=== PATIENT | female | born 1945 | race Caucasian/White ===

== ENCOUNTER 2020-01-15 13:33 | Inpatient (IN) ==
[2020-01-16] MEDS ORDERED: Furosemide 40 MG TABLET PO PRN (10:58)
[2020-01-16] MEDS ORDERED: *HR* HYDROcodone/Acet 5/325 mg TABLET PO PRN (10:58)
[2020-01-16] MEDS: Ketotifen Fumarate [Zaditor] 1 DROP OP SCH ×3 (14:12→21:07)
[2020-01-16] MEDS: Glucosamine/D3/Boswellia Serra [Osteo Bi-Flex Tablet] PO SCH (21:07)
[2020-01-17] MEDS: polyethylene glycoL 3350 17 GM POWD.PACK PO SCH (07:40)
[2020-01-17] MEDS: Multivit/Ca/Min/Fe/FA 1 TAB TABLET PO SCH (07:43)
[2020-01-17] MEDS: Glucosamine/D3/Boswellia Serra [Osteo Bi-Flex Tablet] PO SCH ×2 (07:44→20:47)
[2020-01-17] MEDS: Ketotifen Fumarate [Zaditor] 1 DROP OP SCH ×4 (07:44→20:47)
[2020-01-17] MEDS ORDERED: NON-FORMULARY MEDICATION 1 EACH EACH (Potassium Chloride [K-Tab Er] 20 MEQ) PO SCH (09:00)
[2020-01-17 09:39] LABS: INR 1.1; Prothrombin Time 12.9 Seconds (9.4-12.1)
[2020-01-17 09:49] LABS: BUN/Creatinine Ratio 15 (6-26); Blood Urea Nitrogen 15 mg/dL (8-23); Carbon Dioxide 27 mEq/L (23-29); Chloride 97 mEq/L (98-107); Glucose 88 mg/dL (70-105); Osmolality,Calculated 278 (280-300); Potassium 3.6 mEq/L (3.5-5.1); Sodium 134 mEq/L (136-145); eGFR For African Americans > 60 (> 60); eGFR For Non-African Americans 53 (> 60)
[2020-01-18] MEDS: Multivit/Ca/Min/Fe/FA 1 TAB TABLET PO SCH (08:00)
[2020-01-18] MEDS: Glucosamine/D3/Boswellia Serra [Osteo Bi-Flex Tablet] PO SCH ×2 (08:00→21:03)
[2020-01-18] MEDS: Ketotifen Fumarate [Zaditor] 1 DROP OP SCH ×4 (08:01→21:03)
[2020-01-18] MEDS: polyethylene glycoL 3350 17 GM POWD.PACK PO SCH (08:01)
[2020-01-19] MEDS: Multivit/Ca/Min/Fe/FA 1 TAB TABLET PO SCH (08:34)
[2020-01-19] MEDS: polyethylene glycoL 3350 17 GM POWD.PACK PO SCH (08:34)
[2020-01-19] MEDS: Glucosamine/D3/Boswellia Serra [Osteo Bi-Flex Tablet] PO SCH ×2 (08:35→20:54)
[2020-01-19] MEDS: Ketotifen Fumarate [Zaditor] 1 DROP OP SCH ×4 (08:35→20:54)
[2020-01-19] MEDS ORDERED: Bisacodyl 10 MG RECTAL SUPPOSITORY RC PRN (14:51)
[2020-01-19] MEDS ORDERED: Lactulose Oral Soln 20 GM/30 ML UDC PO PRN (14:51)
[2020-01-20] MEDS: polyethylene glycoL 3350 17 GM POWD.PACK PO SCH (09:21)
[2020-01-20] MEDS: Multivit/Ca/Min/Fe/FA 1 TAB TABLET PO SCH (09:22)
[2020-01-20] MEDS: Glucosamine/D3/Boswellia Serra [Osteo Bi-Flex Tablet] PO SCH ×2 (09:22→19:46)
[2020-01-20] MEDS: Ketotifen Fumarate [Zaditor] 1 DROP OP SCH ×4 (09:22→19:45)
[2020-01-21] MEDS: polyethylene glycoL 3350 17 GM POWD.PACK PO SCH (08:47)
[2020-01-21] MEDS: Glucosamine/D3/Boswellia Serra [Osteo Bi-Flex Tablet] PO SCH ×2 (08:47→19:50)
[2020-01-21] MEDS: Multivit/Ca/Min/Fe/FA 1 TAB TABLET PO SCH (08:47)
[2020-01-21] MEDS: Ketotifen Fumarate [Zaditor] 1 DROP OP SCH ×4 (08:47→19:51)
[2020-01-22] MEDS: polyethylene glycoL 3350 17 GM POWD.PACK PO SCH (08:27)
[2020-01-22] MEDS: Multivit/Ca/Min/Fe/FA 1 TAB TABLET PO SCH (08:27)
[2020-01-22] MEDS: Glucosamine/D3/Boswellia Serra [Osteo Bi-Flex Tablet] PO SCH ×2 (08:28→20:22)
[2020-01-22] MEDS: Ketotifen Fumarate [Zaditor] 1 DROP OP SCH ×4 (08:28→20:22)
[2020-01-23] MEDS: Multivit/Ca/Min/Fe/FA 1 TAB TABLET PO SCH (10:23)
[2020-01-23] MEDS: polyethylene glycoL 3350 17 GM POWD.PACK PO SCH (10:24)
[2020-01-23] MEDS: Glucosamine/D3/Boswellia Serra [Osteo Bi-Flex Tablet] PO SCH ×2 (10:30→22:05)
[2020-01-23] MEDS: Ketotifen Fumarate [Zaditor] 1 DROP OP SCH ×4 (10:30→20:40)
[2020-01-24] MEDS: polyethylene glycoL 3350 17 GM POWD.PACK PO SCH (07:59)
[2020-01-24] MEDS: Ketotifen Fumarate [Zaditor] 1 DROP OP SCH ×4 (08:00→20:22)
[2020-01-24] MEDS: Glucosamine/D3/Boswellia Serra [Osteo Bi-Flex Tablet] PO SCH ×2 (08:00→20:22)
[2020-01-24] MEDS: Multivit/Ca/Min/Fe/FA 1 TAB TABLET PO SCH (08:14)
[2020-01-24] MEDS: Nystatin POWDER 30 GM BOTTLE TP SCH ×2 (17:41→20:22)
[2020-01-25 06:39] LABS: Basophils % 0.7 %; Eosinophils # 0.3 K/mcL (0.0-0.6); Eosinophils % 4.1 %; Hematocrit 35.7 % (35.3-44.9); Hemoglobin 11.8 g/dL (11.5-15.4); Immature Granulocytes % 0.2 % (0-4); Lymphocytes % 32.7 %; Mean Corpuscular HGB Conc 33.1 g/dL (31.6-35.5); Mean Corpuscular Hemoglobin 30.3 pg (28.0-33.3); Mean Corpuscular Volume 91.5 fL (83.0-100.0); Mean Platelet Volume 10.9 fL (9.4-12.4); Monocytes # 0.6 K/mcL (0.0-1.3); Monocytes % 9.8 %; Neutrophils # 3.2 K/mcL (1.6-8.9); Platelet Count 109 K/mcL (140-400); Segmented Neutrophils % 52.5 %; White Blood Count 6.1 K/mcL (4.3-11.1)
[2020-01-25 06:56] LABS: Calcium 10.5 mg/dL (8.6-10.3)
[2020-01-25] MEDS: Multivit/Ca/Min/Fe/FA 1 TAB TABLET PO SCH (08:16)
[2020-01-25] MEDS: polyethylene glycoL 3350 17 GM POWD.PACK PO SCH (08:17)
[2020-01-25] MEDS: Nystatin POWDER 30 GM BOTTLE TP SCH ×3 (08:19→21:47)
[2020-01-25] MEDS: Glucosamine/D3/Boswellia Serra [Osteo Bi-Flex Tablet] PO SCH ×2 (11:42→21:22)
[2020-01-25] MEDS: Ketotifen Fumarate [Zaditor] 1 DROP OP SCH ×4 (11:42→21:22)
[2020-01-26] MEDS: Multivit/Ca/Min/Fe/FA 1 TAB TABLET PO SCH (09:42)
[2020-01-26] MEDS: Glucosamine/D3/Boswellia Serra [Osteo Bi-Flex Tablet] PO SCH ×2 (09:43→20:04)
[2020-01-26] MEDS: polyethylene glycoL 3350 17 GM POWD.PACK PO SCH (09:43)
[2020-01-26] MEDS: Ketotifen Fumarate [Zaditor] 1 DROP OP SCH ×4 (09:43→20:04)
[2020-01-26] MEDS: Nystatin POWDER 30 GM BOTTLE TP SCH ×3 (09:43→20:04)
[2020-01-27] MEDS: Multivit/Ca/Min/Fe/FA 1 TAB TABLET PO SCH (10:20)
[2020-01-27] MEDS: polyethylene glycoL 3350 17 GM POWD.PACK PO SCH (10:20)
[2020-01-27] MEDS: Ketotifen Fumarate [Zaditor] 1 DROP OP SCH ×4 (10:21→20:20)
[2020-01-27] MEDS: Glucosamine/D3/Boswellia Serra [Osteo Bi-Flex Tablet] PO SCH ×2 (10:21→20:20)
[2020-01-27] MEDS: Nystatin POWDER 30 GM BOTTLE TP SCH ×3 (10:24→21:58)
[2020-01-28] MEDS: Glucosamine/D3/Boswellia Serra [Osteo Bi-Flex Tablet] PO SCH ×2 (09:21→20:31)
[2020-01-28] MEDS: Ketotifen Fumarate [Zaditor] 1 DROP OP SCH ×4 (09:22→20:33)
[2020-01-28] MEDS: polyethylene glycoL 3350 17 GM POWD.PACK PO SCH (09:25)
[2020-01-28] MEDS: Nystatin POWDER 30 GM BOTTLE TP SCH ×3 (09:26→20:33)
[2020-01-28] MEDS: Multivit/Ca/Min/Fe/FA 1 TAB TABLET PO SCH (09:26)
[2020-01-29 07:29] LABS: Basophils % 0.6 %; Eosinophils # 0.3 K/mcL (0.0-0.6); Eosinophils % 5.6 %; Hematocrit 34.1 % (35.3-44.9); Hemoglobin 11.3 g/dL (11.5-15.4); Lymphocytes # 1.9 K/mcL (0.6-4.6); Lymphocytes % 40.5 %; Mean Corpuscular HGB Conc 33.1 g/dL (31.6-35.5); Mean Corpuscular Hemoglobin 30.3 pg (28.0-33.3); Mean Corpuscular Volume 91.4 fL (83.0-100.0); Mean Platelet Volume 10.4 fL (9.4-12.4); Monocytes # 0.5 K/mcL (0.0-1.3); Monocytes % 9.9 %; Red Blood Count 3.73 M/mcL (3.82-4.97); Segmented Neutrophils % 43.4 %; White Blood Count 4.6 K/mcL (4.3-11.1)
[2020-01-29 07:44] LABS: Platelet Count 99 K/mcL (140-400)
[2020-01-29] MEDS: Glucosamine/D3/Boswellia Serra [Osteo Bi-Flex Tablet] PO SCH ×2 (10:20→20:12)
[2020-01-29] MEDS: polyethylene glycoL 3350 17 GM POWD.PACK PO SCH (10:20)
[2020-01-29] MEDS: Ketotifen Fumarate [Zaditor] 1 DROP OP SCH ×4 (10:20→20:11)
[2020-01-29] MEDS: Nystatin POWDER 30 GM BOTTLE TP SCH ×3 (10:23→20:11)
[2020-01-29] MEDS: Multivit/Ca/Min/Fe/FA 1 TAB TABLET PO SCH (10:23)
[2020-01-29 12:55] LABS: Potassium 3.9 mEq/L (3.5-5.1)
[2020-01-30] MEDS: polyethylene glycoL 3350 17 GM POWD.PACK PO SCH (08:23)
[2020-01-30] MEDS: Multivit/Ca/Min/Fe/FA 1 TAB TABLET PO SCH (08:24)
[2020-01-30] MEDS: Nystatin POWDER 30 GM BOTTLE TP SCH ×3 (08:25→19:46)
[2020-01-30] MEDS: Glucosamine/D3/Boswellia Serra [Osteo Bi-Flex Tablet] PO SCH ×2 (08:54→19:46)
[2020-01-30] MEDS: Ketotifen Fumarate [Zaditor] 1 DROP OP SCH ×4 (08:55→19:46)
[2020-01-31] MEDS: Ketotifen Fumarate [Zaditor] 1 DROP OP SCH ×4 (09:24→20:08)
[2020-01-31] MEDS: Glucosamine/D3/Boswellia Serra [Osteo Bi-Flex Tablet] PO SCH ×2 (09:24→20:08)
[2020-01-31] MEDS: Multivit/Ca/Min/Fe/FA 1 TAB TABLET PO SCH (09:45)
[2020-01-31] MEDS: polyethylene glycoL 3350 17 GM POWD.PACK PO SCH (09:46)
[2020-01-31] MEDS: Nystatin POWDER 30 GM BOTTLE TP SCH ×3 (09:46→20:07)
[2020-02-01] MEDS: Glucosamine/D3/Boswellia Serra [Osteo Bi-Flex Tablet] PO SCH ×2 (09:01→19:57)
[2020-02-01] MEDS: Ketotifen Fumarate [Zaditor] 1 DROP OP SCH ×4 (09:02→19:57)
[2020-02-01] MEDS: Multivit/Ca/Min/Fe/FA 1 TAB TABLET PO SCH (09:06)
[2020-02-01] MEDS: polyethylene glycoL 3350 17 GM POWD.PACK PO SCH (09:06)
[2020-02-01] MEDS: Nystatin POWDER 30 GM BOTTLE TP SCH ×3 (09:07→19:56)
[2020-02-02] MEDS: Ketotifen Fumarate [Zaditor] 1 DROP OP SCH ×4 (07:28→19:47)
[2020-02-02] MEDS: Glucosamine/D3/Boswellia Serra [Osteo Bi-Flex Tablet] PO SCH ×2 (07:28→19:47)
[2020-02-02] MEDS: polyethylene glycoL 3350 17 GM POWD.PACK PO SCH (09:20)
[2020-02-02] MEDS: Multivit/Ca/Min/Fe/FA 1 TAB TABLET PO SCH (09:24)
[2020-02-02] MEDS: Nystatin POWDER 30 GM BOTTLE TP SCH ×3 (09:31→19:47)
[2020-02-03] MEDS: Glucosamine/D3/Boswellia Serra [Osteo Bi-Flex Tablet] PO SCH ×2 (09:58→20:16)
[2020-02-03] MEDS: Multivit/Ca/Min/Fe/FA 1 TAB TABLET PO SCH (09:58)
[2020-02-03] MEDS: polyethylene glycoL 3350 17 GM POWD.PACK PO SCH (09:58)
[2020-02-03] MEDS: Ketotifen Fumarate [Zaditor] 1 DROP OP SCH ×4 (09:59→20:16)
[2020-02-03] MEDS: Nystatin POWDER 30 GM BOTTLE TP SCH ×3 (10:43→20:16)
[2020-02-04] MEDS: Multivit/Ca/Min/Fe/FA 1 TAB TABLET PO SCH (09:49)
[2020-02-04] MEDS: polyethylene glycoL 3350 17 GM POWD.PACK PO SCH (09:50)
[2020-02-04] MEDS: Nystatin POWDER 30 GM BOTTLE TP SCH ×3 (09:53→20:08)
[2020-02-04] MEDS: Glucosamine/D3/Boswellia Serra [Osteo Bi-Flex Tablet] PO SCH ×2 (10:29→20:09)
[2020-02-04] MEDS: Ketotifen Fumarate [Zaditor] 1 DROP OP SCH ×4 (10:29→20:09)
[2020-02-04] MEDS ORDERED: Acetaminophen 650 MG RECTAL SUPP RC PRN (10:30)
[2020-02-04] MEDS: Acetaminophen 325 MG TABLET PO PRN (16:00)
[2020-02-05] MEDS: Glucosamine/D3/Boswellia Serra [Osteo Bi-Flex Tablet] PO SCH ×2 (09:01→21:51)
[2020-02-05] MEDS: Acetaminophen 325 MG TABLET PO PRN (09:01)
[2020-02-05] MEDS: Multivit/Ca/Min/Fe/FA 1 TAB TABLET PO SCH (09:01)
[2020-02-05] MEDS: polyethylene glycoL 3350 17 GM POWD.PACK PO SCH (09:01)
[2020-02-05] MEDS: Ketotifen Fumarate [Zaditor] 1 DROP OP SCH ×4 (09:02→21:51)
[2020-02-05] MEDS: Nystatin POWDER 30 GM BOTTLE TP SCH ×3 (09:02→21:51)
[2020-02-06] MEDS: polyethylene glycoL 3350 17 GM POWD.PACK PO SCH (09:16)
[2020-02-06] MEDS: Multivit/Ca/Min/Fe/FA 1 TAB TABLET PO SCH (09:17)
[2020-02-06] MEDS: Glucosamine/D3/Boswellia Serra [Osteo Bi-Flex Tablet] PO SCH ×2 (09:17→20:27)
[2020-02-06] MEDS: Ketotifen Fumarate [Zaditor] 1 DROP OP SCH ×4 (09:17→20:27)
[2020-02-06] MEDS: Nystatin POWDER 30 GM BOTTLE TP SCH ×3 (09:18→20:26)
[2020-02-07] MEDS: Glucosamine/D3/Boswellia Serra [Osteo Bi-Flex Tablet] PO SCH (08:21)
[2020-02-07] MEDS: Ketotifen Fumarate [Zaditor] 1 DROP OP SCH ×3 (08:21→15:42)
[2020-02-07] MEDS: polyethylene glycoL 3350 17 GM POWD.PACK PO SCH (08:22)
[2020-02-07] MEDS: Acetaminophen 325 MG TABLET PO PRN (09:20)
[2020-02-07] MEDS: Nystatin POWDER 30 GM BOTTLE TP SCH ×3 (09:20→20:11)
[2020-02-07] MEDS: Multivit/Ca/Min/Fe/FA 1 TAB TABLET PO SCH (09:22)
[2020-02-08] MEDS: Glucosamine/D3/Boswellia Serra [Osteo Bi-Flex Tablet] PO SCH ×3 (07:21→20:08)
[2020-02-08] MEDS: Ketotifen Fumarate [Zaditor] 1 DROP OP SCH ×5 (07:21→20:08)
[2020-02-08] MEDS: Multivit/Ca/Min/Fe/FA 1 TAB TABLET PO SCH (08:12)
[2020-02-08] MEDS: polyethylene glycoL 3350 17 GM POWD.PACK PO SCH (08:12)
[2020-02-08] MEDS: Nystatin POWDER 30 GM BOTTLE TP SCH ×3 (08:13→20:06)
[2020-02-09] MEDS: Multivit/Ca/Min/Fe/FA 1 TAB TABLET PO SCH (09:32)
[2020-02-09] MEDS: polyethylene glycoL 3350 17 GM POWD.PACK PO SCH (09:32)
[2020-02-09] MEDS: Glucosamine/D3/Boswellia Serra [Osteo Bi-Flex Tablet] PO SCH ×2 (09:32→19:50)
[2020-02-09] MEDS: Nystatin POWDER 30 GM BOTTLE TP SCH ×3 (09:32→19:50)
[2020-02-09] MEDS: Ketotifen Fumarate [Zaditor] 1 DROP OP SCH ×4 (09:32→19:51)
[2020-02-10 07:11] VITALS: BP 124/73
[2020-02-10] MEDS: Glucosamine/D3/Boswellia Serra [Osteo Bi-Flex Tablet] PO SCH (08:55)
[2020-02-10] MEDS: Nystatin POWDER 30 GM BOTTLE TP SCH (08:56)
[2020-02-10] MEDS: Multivit/Ca/Min/Fe/FA 1 TAB TABLET PO SCH (08:56)
[2020-02-10] MEDS: Ketotifen Fumarate [Zaditor] 1 DROP OP SCH (08:56)
[2020-02-10] MEDS: polyethylene glycoL 3350 17 GM POWD.PACK PO SCH (08:56)
== END 2020-02-10 12:45 | disposition home or self-care (01) | DRG 946 ==
LOC: INPPIK 01-16 13:28
PROVIDERS: ADMIT Family Medicine; ATTEND Family Medicine